=== PATIENT | female | born 1960 | race African-American/Black ===

== ENCOUNTER 2023-10-23 04:23 | Emergency (ER) | payer OTHER ==
[2023-10-23 04:36] VITALS: BP 146/76; PULSE 93; RESP 18; TEMP 99; BMI 24.2
[2023-10-23] MEDS ORDERED: AMOX TR/POT CLAV 875MG/125MG TABLETS (FP) PO ONE (05:35)
[2023-10-23] MEDS ORDERED: ACETAMINOPHEN 325 MG TABLET (FP) PO ONE (05:48)
[2023-10-23] MEDS ORDERED: ACETAMINOPHEN 325 MG TABLET (FP) ONE (05:50)
[2023-10-23] MEDS ORDERED: AMOX TR/POT CLAV 500MG/125MG TABLETS (FP) ONE (05:50)
[2023-10-23] MEDS ORDERED: AMOXICILLIN 500 MG CAPSULE (FP) ONE (05:50)
== END 2023-10-23 08:48 | disposition home or self-care (01) ==
LOC: JER 04:23
DX: R05.9 Cough, unspecified (principal); R51.9 Headache, unspecified; J32.9 Chronic sinusitis, unspecified; Z20.822 Contact with and (suspected) exposure to COVID-19
CPT/HCPCS: 0241U-QW; 99283-25